=== PATIENT | male | born 1930 | race Caucasian/White ===

== ENCOUNTER 2018-07-30 15:16 | Emergency (ER) | payer MEDICARE, OTHER ==
[~2018-07-30] VITALS: Ht 177.8 cm; Wt 75.0 kg
[~2018-07-30 15:16] MED LIST: ASPI-515 PO; FURO-93 PO; LORA-445 PO; POTA10CA PO; RANI150T4 PO; RISP0.253 PO
[2018-07-30] MEDS ORDERED: LIDOCAINE 1%-EPI 1:100K, 30ML ONE (16:00)
[2018-07-30] MEDS ORDERED: LIDOCAINE 1%-EPI 1:100K, 20ML ONE (16:00)
[2018-07-30] MEDS ORDERED: LIDOCAINE 1%-EPI 1:100K, 20ML INFIL ONE (16:00)
[2018-07-30 16:45] VITALS: BP 131/82
== END 2018-07-30 17:04 | disposition home or self-care (01) ==
LOC: ED 16:13
DX: S01.01XA Laceration without foreign body of scalp, initial encounter (principal); S40.012A Contusion of left shoulder, initial encounter; F03.90 Unspecified dementia, unspecified severity, without behavioral disturbance, psychotic disturbance, mood disturbance, and anxiety; W18.30XA Fall on same level, unspecified, initial encounter; Y93.89 Activity, other specified; Y92.89 Other specified places as the place of occurrence of the external cause; Y99.8 Other external cause status
CPT/HCPCS: 12001; 99283

== ENCOUNTER 2018-09-28 13:18 | Emergency (ER) | payer MEDICARE, OTHER ==
[~2018-09-28] VITALS: Ht 172.7 cm; Wt 79.1 kg
[2018-09-28] MEDS ORDERED: LIDOCAINE 1%-EPI 1:100K, 20ML ONE (13:51)
[2018-09-28] MEDS ORDERED: L.E.T SOLUTION TP ONE ×2 (13:51→14:00)
[2018-09-28] MEDS ORDERED: DIPH,PERTUSS(ACELL),TET VAC/PF 0.5 ML IM-VACC ONE ×2 (13:51→14:00)
[2018-09-28] MEDS ORDERED: LIDOCAINE 1%-EPI 1:100K, 20ML INFIL ONE (14:00)
--- NOTE | 2018-09-28 14:00 | NUR ---
LET APPLIED TO BRIDGE OF NOSE AND UPPER LIP. TETANUS VACCINE GIVEN.
[2018-09-28] MEDS ORDERED: LORazepam 2 MG/ML, 1ML ONE (14:47)
[2018-09-28] MEDS ORDERED: LORazepam 2 MG/ML, 1ML IVPush ONE (15:00)
[2018-09-28] MEDS ORDERED: LIDOCAINE-MPF 1%, 5ML ONE (15:06)
--- NOTE | 2018-09-28 15:11 | NUR ---
Nose irrigated with NS. Provider aware. Patient to CT.
[2018-09-28] MEDS ORDERED: BACITRACIN ZINC OINT 500U/GM, 0.9 GM ONE (16:24)
[2018-09-28] MEDS ORDERED: BACITRACIN OINT 500U/GM, 15 GM TP PRN (16:30)
--- NOTE | 2018-09-28 17:13 | NUR ---
Patient/Caregiver given discharge instructions and they have confirmed that they understand the instructions. Patient ambulatory with steady gait.
== END 2018-09-28 17:14 | disposition home or self-care (01) ==
LOC: ED 14:48
DX: S09.8XXA Other specified injuries of head, initial encounter (principal); S01.511A Laceration without foreign body of lip, initial encounter; S01.21XA Laceration without foreign body of nose, initial encounter; W01.0XXA Fall on same level from slipping, tripping and stumbling without subsequent striking against object, initial encounter; Y93.89 Activity, other specified; Y92.89 Other specified places as the place of occurrence of the external cause; Y99.8 Other external cause status
CPT/HCPCS: 12052; 70450; 72125; 90471; 90715; 96374; 99285; J2060; J3490

== ENCOUNTER 2018-11-09 11:50 | Emergency (ER) | payer MEDICARE ==
[~2018-11-09] VITALS: Ht 172.7 cm; Wt 78.0 kg
[2018-11-09 11:54] VITALS: BP 117/60
--- NOTE | 2018-11-09 12:13 | NUR ---
PT HAD GLF HX SAME MULTI OVER THE PAST SEVERAL MO MULTI FACIAL LACS AND CONTUSIONS REPORTED NO LOC NOTED MULTI CONTUSIONS ON THE ARMS FROM PAST FALLS PT MENTATION TO NORM PER FAMILY HX DEMENTIA EQUAL MOVEMENT ALL EXTRAMITIES
--- NOTE | 2018-11-09 12:16 | NUR ---
FAMILY AT THE BS PT IS RESTLESS TWO CONVERSATIONS WITH FAMILY RE PT SAFETY THEY WILL RMAIN AT THE BS FOR PT CONTROL THEY WILL ADVISE IF THEY ARE LEAVING OR IF THEY NEED ASSISTANCE
[2018-11-09] MEDS ORDERED: PLEASE ENTER HEIGHT AND WEIGHT MC SCH (12:30)
[2018-11-09] MEDS ORDERED: LIDOCAINE 1%-EPI 1:100K, 20ML INFIL ONE (12:30)
[2018-11-09] MEDS ORDERED: LIDOCAINE 1%-EPI 1:100K, 20ML ONE (12:47)
[2018-11-09] MEDS ORDERED: BACITRACIN ZINC OINT 500U/GM, 0.9 GM ONE (13:16)
== END 2018-11-09 14:29 | disposition home or self-care (01) ==
LOC: ED 12:26
DX: S01.81XA Laceration without foreign body of other part of head, initial encounter (principal); S01.511A Laceration without foreign body of lip, initial encounter; S01.411A Laceration without foreign body of right cheek and temporomandibular area, initial encounter; W18.30XA Fall on same level, unspecified, initial encounter; Y93.89 Activity, other specified; Y92.009 Unspecified place in unspecified non-institutional (private) residence as the place of occurrence of the external cause; Y99.8 Other external cause status
CPT/HCPCS: 13131; 13132; 99285